=== PATIENT | male | born 1945 | race Caucasian/White ===

== ENCOUNTER → 2018-01-10 | Outpatient (CLI) | payer MEDICARE ==
[2015-01-09 09:06] VITALS: BMI 28.5
[~2018-01-10] MED LIST: ACE325 PO; AUG875 PO; BET25 PO; CHOL200022 PO; CIPR-344 PO; DOCU-416 PO; ENO150PT SQ; FAM20 PO; FAMO20TA28 PO; GUAI120L3 PEG; HYDR-389 PO; IBU200 PO; IBU600 PO; IBUP-1618 PO; IBUP-56 PO; LEV500 PO; LEVO50TA86 PO; LEVO75TA73 PO; LOP2 PO; LOR05 PO; LOR5/325 PO; MV,M1TAB4 PO; NAPR-1043 PO; OMEP-125 PO; OMEP-218 PO; OSC600 PO; OXY5 PO; OXYB10TA21 PO; PHEN200T32 PO; PHENA200 PO; PNEU0.5D3 IM; POT5L PO; PRO5 PO; RANI-318 PO; TAM4 PO; TAMS0.4C69 PO; TAMS0.4C70 PO; WAR5 PO; [UNRECOGNIZED DRUG - CODE] PO; [UNRECOGNIZED DRUG - CODE] PO
== END ==
LOC: LAB 10:25
DX: R97.20 Elevated prostate specific antigen [PSA] (principal)
CPT/HCPCS: 36415; 84153

== ENCOUNTER → 2018-03-08 | Outpatient (CLI) | payer MEDICARE ==
[2015-01-09 09:06] VITALS: BMI 28.5
[2018-03-08 16:29] LABS: PLATELET COUNT, AUTOMATED 154 K/uL (150-450)
== END ==
LOC: LAB 15:29
PROVIDERS: ATTEND Nurse Practitioner Family
DX: E03.9 Hypothyroidism, unspecified (principal); N18.2 Chronic kidney disease, stage 2 (mild)
CPT/HCPCS: 36415; 82040; 82247; 82310; 82374; 82435; 82565; 82947; 84075; 84132; 84155; 84295; 84450; 84460; 84520; 85025

== ENCOUNTER → 2018-10-04 | Outpatient (CLI) | payer OTHER, MEDICARE ==
[2015-01-09 09:06] VITALS: BMI 28.5
[~2018-10-04] MED LIST changes: +CHOL200018 PO; -CHOL200022 PO; +METH4TAB66 PO
--- NOTE | 2018-10-04 14:26 | RADIOLOGY IMAGING REPORT ---
FACILITY: [facility] [place] PATIENT NAME: Derrek Hines : 1945 MR: [id number] V: [id number] EXAM DATE: ORDERING PHYSICIAN: FLOYD HERNANDEZ TECHNOLOGIST: [place] [facility] [place] Derrek Hines : 1945 Visit/Account:[id number] Date of Sevice: 10/04/2018 Exam type: L-SPINE >4 VIEWS History: Low back pain, no known injury Comparison: None. Findings: There are five nonrib-bearing lumbar-type vertebral bodies present. There is mild straightening of n ormal lumbar lordosis which can be seen with muscle spasm. Also noted is a gentle dextroconvex scoli osis. This mild loss of height of the T11 and T12 vertebral bodies of indeterminate age. There is mild di sc space narrowing T12-L1. There is moderate to severe disc space narrowing at L1-2 with sclerosis of the adjacent endplates an d anterior osteophytes. There is moderate disc space narrowing with gas noted in the disc space at L2-L3.. There is sclerosi s of the adjacent endplates and small anterior osteophytes There is severe disc space narrowing at L5-S1 with sclerosis of the adjacent endplates. There is a 1 .3 cm anterior listhesis of L5 with respect S1 secondary to bilateral pars defects at L5. There are mild to moderate degenerative facet joint changes seen throughout the entire lumbar spine. IMPRESSION: 1. Extensive spondylotic changes lumbar spine as described above Report Dictated By: Danay Jackman MD at 10/04/2018 2:16 PM Report E-Signed By: Danay Jackman MD at 10/04/2018 2:20 PM WSN:[email or web address]
== END ==
LOC: RAD 11:15
PROVIDERS: ATTEND Chiropractor
DX: M54.5 Low back pain (principal)
CPT/HCPCS: 72120